=== PATIENT | female | born 1960 | race Caucasian/White ===

== ENCOUNTER → 2023-11-09 09:08 | Outpatient (REF) | payer BC, SELFPAY | LOC: HWWDC 09:08 | PROVIDERS: ATTENDING PHYSICIAN Physician Assistant | DX: Z12.31 Encounter for screening mammogram for malignant neoplasm of breast (principal) | CPT/HCPCS: 77063; 77067 ==

== ENCOUNTER 2025-04-22 11:26 | Emergency (ER) | payer BC, SELFPAY ==
[2025-04-22 11:26] VITALS: BMI 20.5
[2025-04-22 11:27] VITALS: BP 145/96
[2025-04-22] MEDS: NSS 1000 IV (12:20)
[2025-04-22 12:34] LABS: Hematocrit 36.4 % (37.0-47.0); Hemoglobin 12.3 g/dL (12.0-16.0); Mean Corp Hgb Conc. 33.8 g/dL (33.0-37.0); Mean Corpuscular Volume 94.8 fL (81.0-99.0); Nucleated Red Blood Cells % 0 %; Platelet Count 187 10^3/uL (130-400); Red Cell Dist. Width 11.1 % (11.5-14.5)
[2025-04-22 12:35] LABS: Urine Character Clear (Clear)
[2025-04-22 12:51] VITALS: BP 121/68
[2025-04-22 12:56] LABS: ALT (SGPT) 20 U/L (0-35); AST (SGOT) 26 U/L (14-36); Albumin 4.8 g/dl (3.5-5.0); Alkaline Phosphatase 60 U/L (38-126); Blood Urea Nitrogen 19 mg/dl (7-17); Calcium 9.8 mg/dl (8.4-10.2); Carbon Dioxide 30 mmol/L (22-30); Chloride 104 mmol/L (98-107); Estimated Creatinine Clearance 59 ml/min; Glucose 96 mg/dl (70-99); Potassium 5.4 mmol/L (3.5-5.1); Sodium 138 mmol/L (135-145); Total Protein 7.2 g/dl (6.3-8.2); eGFR > 60.00
--- NOTE | 2025-04-22 13:27 | ED.GENMED ---
History of Present Illness
General
Chief Complaint: Abdominal Pain
Time Seen by Provider: 04/22/25 11:42
History of Present Illness
History of Present Illness:
65-year-old female with history of GERD and hiatal hernia presenting for several weeks of generalized abdominal discomfort. Notes early satiety and some soft stools. Reports that after she eats food she often feels nauseous. Has had ongoing GI
issues, however feels that they have been increasing in the past 2 months. She has not seen a GI doctor for several years. Does no history of endoscopy in the past, however has never had a colonoscopy. Denies associated fever. Denies blood in
her stool. Denies any vomiting. Denies any abdominal surgeries in the past. Denies additional acute medical complaints
Phy Exam
Physical Exam
Physical Exam:
General: Well-appearing, no clinical signs of dehydration, nontoxic and in no acute distress
HEENT: protecting airway
Neck: appears supple
CV: Normal heart rate, regular rhythm
Resp: No accessory muscle use, no increased work of breathing, lungs clear to auscultation bilaterally
Abd: Soft and non-distended, no tenderness to palpation
Extremities: No deformities, no swelling
Neuro: alert, no focal neurologic deficit
: deferred
Rectal: deferred
Psych: Normal affect
Skin: Intact
Course
Orders/Labs/Results
Orders:
Orders
04/22/25 12:12
0.9% Sodium Chloride 1000 ml [Nss] 1,000 ml IV BOLUS
04/22/25 12:16
CT Abd/pel Without Iv Or Oral Urgent
Comment:
Reason For Exam: lower abd discomfort
04/22/25 12:22
Complete Blood Count/With Diff Urgent
Comprehensive Metabolic Panel Urgent
Urinalysis Reflex To Culture Urgent
Date Specimen was Collected: 04/22/25
Time Specimen was Collected: 12:18
Abnormal Lab Results
04/22/25
12:22
RBC 3.84 L 10^6/uL
(4.20-5.40)
Hct 36.4 L %
(37.0-47.0)
MCH 32.0 H pg
(27.0-31.0)
RDW 11.1 L %
(11.5-14.5)
MPV 11.2 H fL
(7.4-10.4)
Lymphocytes % 20.2 L %
(20.5-51.1)
Potassium 5.4 H mmol/L
(3.5-5.1)
BUN 19 H mg/dl
(7-17)
04/22/25 12:22
04/22/25 12:22
Vital Signs
Initial and Last Documented VS:
Initial Vital Signs
Temp Pulse Resp BP Pulse Ox
98.6 F 101 20 145/96 96
04/22/25 11:27 04/22/25 11:27 04/22/25 11:27 04/22/25 11:27 04/22/25 11:27
Last Documented Vital Signs
Temp Pulse Resp BP Pulse Ox
98.4 F 87 16 121/68 99
04/22/25 12:00 04/22/25 12:51 04/22/25 12:51 04/22/25 12:51 04/22/25 13:29
MDM/Problems Addressed
MDM/Problems Addressed:
65-year-old female with history of GERD and hiatal hernia presenting for generalized abdominal discomfort with nausea, diarrhea, early satiety for several weeks. Vital signs are normal.
On exam patient is resting comfortably, no acute distress or discomfort. She is afebrile, nontoxic. Overall reassuring abdominal exam without focal tenderness, soft and nondistended. Without present concern for acute intra-abdominal pathology.
Notes symptoms have been ongoing for months, with chronic GI issues in the past. Did offer laboratory analysis and CT imaging which patient would like to proceed with. Lower suspicion at this time again for acute infection or obstruction. No
focal tenderness to the right lower quadrant without concern for appendicitis. No focal tenderness to the left lower quadrant without concern for diverticulitis. Ultimately feel patient requires outpatient follow-up with GI for likely colonoscopy.
13:30 - Initial plan was for CT with IV and oral contrast, however mistakenly ordered without contrast and patient did receive. Labs unremarkable with exception of mild elevation of potassium. CT without evidence of acute pathology. Did
communicate results to patient disclosed that CT was obtained without contrast. CT grossly without any obstructive pathology or concerning findings. In discussion with patient, feel no reason for repeat imaging with contrast given her duration of
symptoms and hemodynamic stability with unremarkable exam. Patient in agreement. She is going to follow-up with GI. Information provided. Feel stable for discharge. Return precautions discussed and patient verbalized understanding
*Pulse Oximetry
SaO2: 99
Oxygen Mode of Delivery: Room air
Patient hypoxic: no
*Critical Care Note
Total Time (30-74mins, 75-104mins- exclusive of procedures): Not Applicable
ED Attending Note
-
Portions of this chart may have been created with voice recognition software.� Occasional wrong word or��sound alike� substitutions may have occurred due to the inherent limitations of voice recognition software.
Discharge Plan
Departure
Patient Disposition: Home (Routine Discharge)
Date of Disposition: 04/22/25
Time of Disposition: 13:35
Patient with high blood pressure during this ER visit?: No
Condition: Good
Discharge Problem:
Abdominal pain, Diarrhea
Instructions: Diarrhea in adults - ED (DC), Abdominal Pain
Prescriptions:
No Action
lansoprazole 15 mg Tablet,Disintegrat, Delay Rel
15 mg PO DAILY
Referrals:
Tiera Almeida MD [Active, Gastroenterology]
Scarlet Ball MD [Family Provider, Family Practice]
Activity Restrictions/Additional Instructions:
You were seen in the emergency department for generalized abdominal discomfort
You were found to have reassuring laboratory analysis and CT imaging of your abdomen. Your potassium was incidentally found to be slightly elevated which will need repeat with your primary care doctor in the next 1 to 2 weeks.
Please also establish care with a GI doctor for likely need of a colonoscopy.
Return to the emergency department for any worsening of your symptoms, or any development of chest pain, difficulty breathing, abdominal pain with persistent vomiting and inability to tolerate food or liquid by mouth (concern for dehydration),
weakness, headache or confusion, fever greater than 100.4, or any additional symptoms that are concerning to you.
Thank you for choosing [facility].
Interventions
Interventions:
*Risk Screen - Suicide Last Done: 04/22/25 11:27
*General Assessment Last Done: 04/22/25 11:27
*Neglect/Abuse Screening Last Done: 04/22/25 11:38
*ED- Fall Risk Assessment Last Done: 04/22/25 11:38
*Nursing Disposition Last Done: 04/22/25 13:39
VK-Mxpipk-Qch[facility] Assessment Last Done: 04/22/25 11:38
Discharge Date and Time
Discharge Date/Time: 04/22/25 13:52
Print Language: ETHIOPIAN
== END 2025-04-22 13:52 | disposition home or self-care (01) ==
LOC: EMR 11:26
PROVIDERS: EMERGENCY PHYSICIAN Student in an Organized Health Care Education/Training Program; FAMILY PHYSICIAN Family Medicine
DX: R10.9 Unspecified abdominal pain (principal)
CPT/HCPCS: 99284; 96360; 74176; 80053; 81003; 85025

== ENCOUNTER → 2025-07-28 09:12 | Outpatient (REF) | payer BC, SELFPAY | LOC: HWWDC 09:12 | PROVIDERS: ATTENDING PHYSICIAN Physician Assistant | DX: Z12.31 Encounter for screening mammogram for malignant neoplasm of breast (principal) | CPT/HCPCS: 77063; 77067 ==